=== PATIENT | male | born 1970 | race African-American/Black ===

== ENCOUNTER 2022-06-01 09:41 | Emergency (ER) | payer MEDICAID ==
[~2022-06-01] VITALS: Ht 188 cm; Wt 138.0 kg
[2022-06-01 09:50] VITALS: BP 139/75
[2022-06-01 12:05] LABS: CHLORIDE 109 mEq/L (98-107)
[2022-06-01 12:18] LABS: BASOPHILS % 0.8 % (0.0-2.0); EOSINOPHILS % 2.2 % (0.0-5.0); HEMATOCRIT. 39.8 % (42.0-52.0); HEMOGLOBIN. 13.6 g/dL (14.0-18.0); LYMPHOCYTES % 28.8 % (20.0-50.0); MEAN CORPUSCULAR HEMOGLOBIN 31.4 pg (28.0-32.0); MEAN CORPUSCULAR VOLUME 92.3 fL (80.0-94.0); MEAN PLATELET VOLUME 7.8 fl (7.4-10.4); MONOCYTES % 6.8 % (2.0-8.0); NEUTROPHILS % 61.4 % (40.0-76.0); PLATELET 232 x1000/uL (130-400); RED BLOOD CELL COUNT 4.32 mill/uL (4.7-6.1)
[2022-06-01] MEDS ORDERED: ASPIRIN 81MG TABLET PO ONE (16:30)
== END 2022-06-01 17:55 | disposition home or self-care (01) ==
LOC: ER 09:41
DX: R07.89 Other chest pain (principal); Z98.890 Other specified postprocedural states
CPT/HCPCS: 36415; 71045; 80053; 83880; 84484; 85025; 99284; Z7610